=== PATIENT | male | born 1960 | race Caucasian/White ===

== ENCOUNTER 2019-01-22 03:20 | Emergency (ER) | payer BC ==
[~2019-01-22] VITALS: Ht 182.9 cm; Wt 90.7 kg
[2019-01-22 03:40] VITALS: BP 123/81
--- NOTE | 2019-01-22 03:40 | NUR ---
ED Nurse Note: pt walked in due to difficultuy urination and lower abdominal pain started last night @1800. pt stated it is difficult for him to be, pt tried 4 time and then suddenly he feels like he pass the stone, pt denies any pt at the moment. ermd on bedside. pt able to give urine specimen and sent to lab. will continue to monitor.
--- NOTE | 2019-01-22 03:47 | Emergency Room Report ---
History of Present Illness General Chief Complaint: Abdominal Pain Source: Patient Present Illness HPI Is a 58-year-old male with history of kidney stone. He presents with chief complaint of possible UTI. He has some trouble urinating and then had incontinence of his urine. He thought that he may have passed a kidney stone. Because primary care doctor told to come in to make sure he doesn't have a urinary tract infection. Patient felt better now. No dysuria or frequency. No hematuria. Denies any other complaint right now. Allergies: Coded Allergies: No Known Allergies (Unverified , 01/22/19) Patient History Past Medical History: see triage record, old chart reviewed Past Surgical History: other Pertinent Family History: none Social History: Denies: smoking Immunizations: other Reviewed Nursing Documentation: PMH: Agreed; PSxH: Agreed Review of Systems Eye: Denies: eye pain, blurred vision ENT: Denies: ear pain, nose congestion, throat swelling Respiratory: Denies: cough, shortness of breath Cardiovascular: Denies: chest pain, palpitations Gastrointestinal: Denies: abdominal pain, diarrhea, nausea, vomiting Genitourinary: Reports: dysuria, incontinence Musculoskeletal: Denies: back pain, joint pain Skin: Denies: rash Neurological: Denies: headache, numbness Endocrine: Denies: increased thirst, increased urine Hematologic/Lymphatic: Denies: easy bruising All Other Systems: negative except mentioned in HPI Physical Exam Vital Signs Date Time Temp Pulse Resp B/P (MAP) Pulse Ox O2 Delivery O2 Flow Rate FiO2 01/22/19 03:29 98.2 101 16 123/81 95 Room Air vitals normal Sp02 EP Interpretation: reviewed, normal General Appearance: well appearing, no apparent distress, alert Head: normocephalic, atraumatic Eyes: bilateral eye PERRL, bilateral eye EOMI ENT: hearing grossly normal, normal pharynx Neck: full range of motion, supple, no meningismus Respiratory: chest non-tender, lungs clear, normal breath sounds Cardiovascular #1: regular rate, rhythm, no murmur Gastrointestinal: normal bowel sounds, non tender, no mass, no organomegaly, no bruit, non-distended Musculoskeletal: back normal, gait/station normal, normal range of motion Psychiatric: mood/affect normal Skin: warm/dry Medical Decision Making Diagnostic Impression: Primary Impression: Urinary incontinence Qualified Codes: R32 - Unspecified urinary incontinence ER Course Presents with incontinence of his urine. Probably secondary to his intoxicated state. Didn't pass a kidney stone. He does have some microscopic hematuria. No evidence of infection. We'll discharge home. Last Vital Signs Date Time Temp Pulse Resp B/P (MAP) Pulse Ox O2 Delivery O2 Flow Rate FiO2 01/22/19 03:29 98.2 101 16 123/81 95 Room Air Status: unchanged Disposition: HOME, SELF-CARE Condition: Stable Scripts No Active Prescriptions or Reported Meds Referrals: Nilesh Saucedo MD (PCP) Additional Instructions: Follow-up with your doctor in 7 days. Return if symptom worsen. Clifford Patel MD Jan 22, 2019 03:47
[2019-01-22 04:14] LABS: APPEARANCE,URINE CLEAR; BILIRUBIN, URINE NEGATIVE (NEGATIVE); COLOR,URINE PALE YELLOW; GLUCOSE, URINE (UA) NEGATIVE (NEGATIVE); KETONES,URINE NEGATIVE (NEGATIVE); LEUKOCYTE ESTERASE ,URINE NEGATIVE (NEGATIVE); NITRITE,URINE NEGATIVE (NEGATIVE); PH,URINE 6.5 (4.5-8.0); PROTEIN,URINE 2+ (NEGATIVE); UROBILINOGEN,URINE NORMAL MG/DL (0.0-1.0)
[2019-01-22 04:25] VITALS: BP 123/81
== END 2019-01-22 04:25 | disposition home or self-care (01) ==
LOC: EMR 03:35
DX: R32 Unspecified urinary incontinence (principal); Z87.442 Personal history of urinary calculi
CPT/HCPCS: 81003; 99283

== ENCOUNTER 2019-02-05 02:20 | Emergency (ER) | payer BC ==
[~2019-02-05] VITALS: Ht 182.9 cm; Wt 81.6 kg
[2019-02-05 02:31] VITALS: BP 114/75
--- NOTE | 2019-02-05 02:40 | NUR ---
ED Nurse Note: Patient presents with erection device malfunction.
[2019-02-05 02:51] LABS: APPEARANCE,URINE CLOUDY; BILIRUBIN, URINE NEGATIVE (NEGATIVE); COLOR,URINE BROWN; GLUCOSE, URINE (UA) NEGATIVE (NEGATIVE); KETONES,URINE 1+ (NEGATIVE); LEUKOCYTE ESTERASE ,URINE 2+ (NEGATIVE); NITRITE,URINE POSITIVE (NEGATIVE); PH,URINE 6 (4.5-8.0); PROTEIN,URINE 4+ (NEGATIVE); UROBILINOGEN,URINE 1 MG/DL (0.0-1.0)
--- NOTE | 2019-02-05 03:13 | NUR ---
ED Nurse Note: Labs drawn and taken to lab. Patient is attempting to rest at this time. vital signs are stable.
[2019-02-05 03:14] LABS: BASOPHILS % (AUTO) 0.5 % (0.0-2.0); EOSINOPHILS % (AUTO) 0.6 % (0.0-3.0); HEMOGLOBIN 15.5 G/DL (14.2-18.0); LYMPHOCYTES % (AUTO) 15.7 % (20.0-45.0); MEAN CORPUSCULAR VOLUME 89 FL (80-99); MONOCYTES % (AUTO) 5.7 % (1.0-10.0); NEUTROPHILS % (AUTO) 77.4 % (45.0-75.0); PLATELET COUNT 342 K/UL (150-450); RED BLOOD COUNT 5.06 M/UL (4.70-6.10); RED CELL DISTRIBUTION WIDTH 11.1 % (11.6-14.8); WHITE BLOOD COUNT 12.9 K/UL (4.8-10.8)
[2019-02-05 03:16] VITALS: BP 114/77
[2019-02-05 03:24] LABS: ANION GAP 12 mmol/L (5-15); BLOOD UREA NITROGEN 19 mg/dL (7-18); CALCIUM 9.7 MG/DL (8.5-10.1); CARBON DIOXIDE 26 MMOL/L (21-32); CHLORIDE 100 MMOL/L (98-107); CREATININE 1.2 MG/DL (0.55-1.30); POTASSIUM 3.9 MMOL/L (3.5-5.1); SODIUM 138 MMOL/L (136-145)
[2019-02-05 03:29] LABS: ALANINE AMINOTRANSFERASE 56 U/L (12-78); ALBUMIN 3.4 G/DL (3.4-5.0); ALBUMIN/GLOBULIN RATIO 0.7 (1.0-2.7); ALKALINE PHOSPHATASE 175 U/L (46-116); ASPARTATE AMINO TRANSFERASE 28 U/L (15-37); BILIRUBIN,TOTAL 0.4 MG/DL (0.2-1.0)
[2019-02-05] MEDS ORDERED: CEPHALEXIN500 MG ORAL (03:57)
[2019-02-05 04:04] VITALS: BP 114/77
--- NOTE | 2019-02-05 04:10 | NUR ---
ED Nurse Note: Patient cleared for discharge by ERMD, patient is A&Ox4, ambulatory with steady gait, verbalized understanding of discharge instructions, IV removed, ID band removed. Patient escorted to exit.
--- NOTE | 2019-02-05 04:36 | Emergency Room Report ---
History of Present Illness General Chief Complaint: Male Urogenital Problems Source: Patient Present Illness HPI 4-year-old male presents ED for evaluation. 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 The implant was placed June 2018 at [facility]. Patient states she's been having problems with implants since. Scheduled to have revision surgery. Called the urologist chele and was told to call him to [facility]. urologist is Dr. Kishan Carolina. States pain is throbbing, 10 out of 10, nonradiating. States that his penis is erect and he is unable to deflate the implant. States he's also been experiencing hematuria. History of kidney stones. Denies flank pain. Denies fevers or chills. No other aggravating relieving factors. Denies any other associated symptoms Allergies: Coded Allergies: No Known Allergies (Unverified , 01/22/19) Patient History Past Medical History: none Past Surgical History: other - penile implant june 2018 Pertinent Family History: none Social History: Denies: smoking, alcohol use, drug use Immunizations: UTD Reviewed Nursing Documentation: PMH: Agreed; PSxH: Agreed Nursing Documentation-PMH Past Medical History: No History, Except For Review of Systems All Other Systems: negative except mentioned in HPI Physical Exam Vital Signs Date Time Temp Pulse Resp B/P (MAP) Pulse Ox O2 Delivery O2 Flow Rate FiO2 02/05/19 02:31 97.9 100 12 114/75 98 02/05/19 02:31 Room Air Sp02 EP Interpretation: reviewed, normal General Appearance: no apparent distress, alert, GCS 15, non-toxic Head: normocephalic Eyes: bilateral eye normal inspection, bilateral eye PERRL ENT: normal ENT inspection Neck: normal inspection Respiratory: normal inspection Cardiovascular #1: normal inspection Gastrointestinal: normal bowel sounds, non tender, soft, non-distended, no guarding, no rebound Rectal: deferred Genitourinary: no CVA tenderness, other - penis no induration/erythema. no swelling or discharge Musculoskeletal: normal inspection Neurologic: alert, oriented x3, responsive, motor strength/tone normal, sensory intact, speech normal Psychiatric: normal inspection Skin: normal inspection Lymphatic: normal inspection Medical Decision Making Diagnostic Impression: Primary Impression: Abnormal urogenital findings ER Course Hospital Course 58-year-old male presents ED complaining of penile pain. Status post implant June 2018. Also with hematuria Differential diagnoses include: postoperative infection, implant failure, kidney stone Clinical course Patient placed on stretcher. After initial history, physical exam reveals middle-aged male in no acute distress. On exam the penis does not appear to be erect. no erythema/induration. no discharge We attempted to contact the urologist. In meanwhile I ordered labs, UA labs - minimal leukocytosis noted, hbhematocrit stable, electrolytes okay, UA + blood some bacteria Patient notes history of kidney stones. Denies flank pain. Denies nausea or vomiting. Patient states that he had CT done recently at [facility] which showed no kidney stones. I was ultimately able to contact the urologist information technology program manager for Dr. Carolina. She states that patient was seen earlier at [facility] ER. Got into argument with ER physician there. Patient called her and harassed her restaurant the phone. She states that patient has been going from ER to ER recently requesting revision of his implant. She states that Dr. Carolina had evaluated patient and stated that revision was not necessary as implant appeared to be functioning well. She agrees with assessment that no emergency evaluation indicated at this time. I discussed these findings with the patient. I explained that he needs to follow-up in appropriate fashion with urologist in outpatient setting. There is no emergent indication for implant revision Diagnosis - abnormal urogenital findings Stable and discharged home with prescriptions for Rx keflex. Followup with urology. Return to ED if symptoms recur or worsen Labs Test 02/05/19 02:40 02/05/19 03:05 Urine Color Brown Urine Appearance Cloudy Urine pH 6 (4.5-8.0) Urine Specific [place] 1.025 (1.005-1.035) Urine Protein 4+ (NEGATIVE) Urine Glucose (UA) Negative (NEGATIVE) Urine Ketones 1+ (NEGATIVE) Urine Blood 5+ (NEGATIVE) Urine Nitrite Positive (NEGATIVE) Urine Bilirubin Negative (NEGATIVE) Urine Urobilinogen 1 MG/DL (0.0-1.0) Urine Leukocyte Esterase 2+ (NEGATIVE) Urine RBC 60-80 /HPF (0 - 0) Urine WBC 5-10 /HPF (0 - 0) Urine Squamous Epithelial Cells Occasional /LPF Urine Bacteria Few /HPF (NONE) Urine Mucus Occasional /LPF White Blood Count 12.9 K/UL (4.8-10.8) Red Blood Count 5.06 M/UL (4.70-6.10) Hemoglobin 15.5 G/DL (14.2-18.0) Hematocrit 45.0 % (42.0-52.0) Mean Corpuscular Volume 89 FL (80-99) Mean Corpuscular Hemoglobin 30.6 PG (27.0-31.0) Mean Corpuscular Hemoglobin Concent 34.4 G/DL (32.0-36.0) Red Cell Distribution Width 11.1 % (11.6-14.8) Platelet Count 342 K/UL (150-450) Mean Platelet Volume 6.2 FL (6.5-10.1) Neutrophils (%) (Auto) 77.4 % (45.0-75.0) Lymphocytes (%) (Auto) 15.7 % (20.0-45.0) Monocytes (%) (Auto) 5.7 % (1.0-10.0) Eosinophils (%) (Auto) 0.6 % (0.0-3.0) Basophils (%) (Auto) 0.5 % (0.0-2.0) Prothrombin Time 10.2 SEC (9.30-11.50) Prothromb Time International Ratio 1.0 (0.9-1.1) Activated Partial Thromboplast Time 32 SEC (23-33) Sodium Level 138 MMOL/L (136-145) Potassium Level 3.9 MMOL/L (3.5-5.1) Chloride Level 100 MMOL/L (98-107) Carbon Dioxide Level 26 MMOL/L (21-32) Anion Gap 12 mmol/L (5-15) Blood Urea Nitrogen 19 mg/dL (7-18) Creatinine 1.2 MG/DL (0.55-1.30) Estimat Glomerular Filtration Rate > 60 mL/min (>60) Glucose Level 135 MG/DL (74-106) Calcium Level 9.7 MG/DL (8.5-10.1) Total Bilirubin 0.4 MG/DL (0.2-1.0) Aspartate Amino Transf (AST/SGOT) 28 U/L (15-37) Alanine Aminotransferase (ALT/SGPT) 56 U/L (12-78) Alkaline Phosphatase 175 U/L (46-116) Total Protein 8.2 G/DL (6.4-8.2) Albumin 3.4 G/DL (3.4-5.0) Globulin 4.8 g/dL Albumin/Globulin Ratio 0.7 (1.0-2.7) Lipase 115 U/L (73-393) Last Vital Signs Date Time Temp Pulse Resp B/P (MAP) Pulse Ox O2 Delivery O2 Flow Rate FiO2 02/05/19 03:16 97.9 103 17 114/77 95 Room Air Status: improved Disposition: HOME, SELF-CARE Condition: Stable Scripts Cephalexin* (KEFLEX*) 500 Mg Capsule 500 MG ORAL EVERY 6 HOURS for 7 Days, CAP Prov: Jin Bhagat MD 02/05/19 Referrals: Nilesh Saucedo MD (PCP) Patient Instructions: Hematuria, Adult Additional Instructions: followup with your urologist Jin Bhagat MD Feb 05, 2019 04:36
== END 2019-02-05 04:04 | disposition home or self-care (01) ==
LOC: EMR 02:55
DX: R10.2 Pelvic and perineal pain (principal); R31.9 Hematuria, unspecified; D72.829 Elevated white blood cell count, unspecified
CPT/HCPCS: 36415; 80053; 81003; 83690; 85025; 85610; 85730; 86850; 86900; 86901; 99284

== ENCOUNTER 2020-01-23 10:48 | Emergency (ER) | payer BC ==
[~2020-01-23] VITALS: Ht 182.9 cm; Wt 95.3 kg
[~2020-01-23 10:48] MED LIST: CEPHALEXIN500 MG ORAL
[2020-01-23 11:09] VITALS: BP 132/71
--- NOTE | 2020-01-23 11:09 | NUR ---
ED Nurse Note: Pt speaking loudly and aggressively. Pt appears to have white powder around one of his nostrils.
--- NOTE | 2020-01-23 11:10 | NUR ---
ED Nurse Note: Pt walked in from home without a specific complaint. He says he just wants to talk to the MD. Respirations even and unlabored on room air. Vitals stable as documented.
[2020-01-23] MEDS ORDERED: Phenazopyridine 200mg tab ORAL ONE (11:30)
[2020-01-23 11:50] LABS: APPEARANCE,URINE CLEAR; BILIRUBIN, URINE NEGATIVE (NEGATIVE); COLOR,URINE PALE YELLOW; GLUCOSE, URINE (UA) NEGATIVE (NEGATIVE); KETONES,URINE NEGATIVE (NEGATIVE); LEUKOCYTE ESTERASE ,URINE 1+ (NEGATIVE); NITRITE,URINE NEGATIVE (NEGATIVE); PH,URINE 7 (4.5-8.0); PROTEIN,URINE 3+ (NEGATIVE); UROBILINOGEN,URINE NORMAL MG/DL (0.0-1.0)
[2020-01-23] MEDS ORDERED: CEPHALEXIN500 MG ORAL (11:57)
[2020-01-23] MEDS ORDERED: PHENAZOPYRIDIN100 MG ORAL (11:58)
--- NOTE | 2020-01-23 12:02 | Emergency Room Report ---
History of Present Illness General Chief Complaint: General Complaint Source: Medical Record Present Illness HPI Patient is a 59-year-old male who presents to the ER complaining of dysuria for the past week or 2. Patient states that he was seen here last year for the same symptoms and was diagnosed with a UTI. Patient denies any fever or chills. He denies any nausea or vomiting. He denies any abdominal pain. He denies any hematuria. He denies any penile discharge. COVID-19 risk:Travel to affect: No Allergies: Coded Allergies: No Known Allergies (Unverified , 01/22/19) Nursing Documentation-[facility] Past Medical History: No History, Except For Review of Systems All Other Systems: negative except mentioned in HPI Physical Exam Vital Signs Date Time Temp Pulse Resp B/P (MAP) Pulse Ox O2 Delivery O2 Flow Rate FiO2 01/23/20 11:09 98.2 104 18 119/73 (88) 95 Room Air Sp02 EP Interpretation: reviewed, normal General Appearance: no apparent distress, alert, GCS 15, non-toxic Head: normocephalic, atraumatic Eyes: bilateral eye normal inspection, bilateral eye PERRL ENT: hearing grossly normal, normal pharynx, no angioedema, normal voice Neck: full range of motion, supple/symm/no masses Respiratory: lungs clear, normal breath sounds, speaking full sentences, other - Left posterior chest wall tenderness he states that he has some fractured ribs from a fall 2 weeks ago Cardiovascular #1: regular rate, rhythm, no edema Gastrointestinal: normal bowel sounds, non tender, soft, non-distended, no guarding, no rebound Rectal: deferred Genitourinary: no CVA tenderness Neurologic: alert, motor strength/tone normal, oriented x3, sensory intact, responsive, speech normal Psychiatric: anxious Skin: no rash Lymphatic: no adenopathy Medical Decision Making Diagnostic Impression: Primary Impression: UTI (urinary tract infection) ER Course Patient started on Keflex for UTI. Urine sent for culture. After discussing risks and benefits of further diagnostics, treatment plans, as well as indications for and risks of admission, the patient is agreeable to being discharged home. I have explained that their evaluation and treatment in the emergency department today is an important step towards them achieving better health but that their evaluation today is not intended to replace further evaluation and treatment by a physician in their local clinic. I have explained that while the current findings suggest no immediate life threatening emergency they will require further evaluation and treatment by a physician of their choice in their area. They understand that it will be necessary for them to review the final reports of their ED visit with their clinic physician. We have reviewed indications for return to the Emergency Department. I have explained that additional time may need to pass and/or additional testing as an outpatient may be necessary before a definitive diagnosis can be made. They tell me they are willing to follow up as instructed within the timeframe I recommend. They appear to understand what we discussed. Additionally they understand that if they are unable to be seen by an outpatient physician they are welcome, and in fact should, return to the Emergency Department for a repeat evaluation. The patient is stable at time of discharge. Last Vital Signs Date Time Temp Pulse Resp B/P (MAP) Pulse Ox O2 Delivery O2 Flow Rate FiO2 01/23/20 11:09 98.2 104 18 119/73 (88) 95 Room Air Disposition: HOME, SELF-CARE Condition: Stable Scripts Phenazopyridine Hcl* (PYRIDIUM*) 100 Mg Tablet 100 MG ORAL THREE TIMES A DAY for 14 Days, TAB Prov: Caitlyn Delgado M.D. 01/23/20 Cephalexin* (KEFLEX*) 500 Mg Capsule 500 MG ORAL EVERY 8 HOURS for 14 Days, CAP Prov: Caitlyn Delgado M.D. 01/23/20 Patient Instructions: Urinary Tract Infection, [id number] Caitlyn Delgado M.D. Jan 23, 2020 12:02
[2020-01-23 12:15] VITALS: BP 121/79
--- NOTE | 2020-01-23 12:15 | NUR ---
ER DISCHARGE NOTE: Patient is cleared to be discharged per ERMD, pt is aox4, on room air, with stable vital signs as documented. pt was given dc and prescription instructions and was able to verbalize understanding, pt id band removed. pt is able to ambulate with steady gait. pt took all belongings.
== END 2020-01-23 12:15 | disposition home or self-care (01) ==
LOC: EMR 11:13
DX: N39.0 Urinary tract infection, site not specified (principal)
CPT/HCPCS: 81003; 99282